=== PATIENT | male | born 1960 | race Caucasian/White ===

== ENCOUNTER → 2023-03-05 | Outpatient (CLI) | payer OTHER ==
[~2023-03-05] VITALS: Ht 180.3 cm; Wt 105.0 kg
[2023-03-05] VITALS (11 sets, daily range): BP systolic 133–159; BP diastolic 72–86; PULSE 67–74; TEMP 97.6
[~2023-03-05] MED LIST: ADVAIR IH; ALLEGRA30 MG PO; BYSTOLIC20 MG PO; COMBIRESP IH; COMBIVENT INH14.7 GM IH; COMBIVENT1 ARO IH; COZAAR100 MG PO; DIOVAN320 MG PO; FLOMAX 0.40.4 MG/CAP PO; FLONASE NASAL S16 GM NS; GLUCOPHAGE XR500 M1 PO; GLUCOTROL XL10 MG PO; HCTZ; HCTZ 25MG TAB25 MG PO; HCTZ12.5TAB PO; IPRATROPIUM BROM3 M1 IH; JANUMXR100-1000 PO; JANUMXR1000-50 PO; JARDIANCE25 PO; KLOR-CON SPRIN10 MEQ PO; LIPITOR 10MG10 MG PO; LORTAB 5/500 501 TAB PO; LYRICA200 MG PO; METHOTREXA2.5 MG/TAB PO; Midazolam 2 MG/2 ML VIAL IV SCH; NAPROSYN500 MG PO; NORVASC 10MG10 MG PO; NORVASC 5MG5 MG/TAB PO; NUCALA40 MG/0.4; PREDNISONE1 MG PO; PREDNISONE10 MG; PREDNISONE10 MG PO; PREVACID 30MG30 M1 PO; PROAIR HFA0.09 MG/AC IH; PROSCAR 5MG5 MG PO; PROVENTIL0.09 MG/A1 IH; RT ADVAIR 528 DISKUS IH; SINGULAIR 110 MG/TAB PO; TESSALON P100 MG/CAP PO; ULTRAM 50MG TAB50 MG PO; VENTOLIN INHAL6.8 GM IH; ZOCOR 10MG10 MG PO; fentaNYL 50 MCG/ML 2 ML VIAL IV SCH
[2023-03-05 09:42] LABS: HEMOGLOBIN 13.6 g/dl (13.5-18.0); MEAN CELL VOLUME 79 fl (80.0-100.0); MEAN CORPUSCULAR HEMOGLOBIN 26 pg (27-31); MEAN CORPUSCULAR HGB CONC 33 g/dl (33.0-37.0); MEAN PLATELET VOLUME 8.9 fl (7.4-10.4); PLATELET COUNT 149 K/mm3 (130-400); RED BLOOD COUNT 5.17 M/mm3 (4.20-5.60); REDCELL DISTRIBUTION WIDTH-CV 17.2 % (11.5-14.5)
[2023-03-05 10:08] LABS: ALBUMIN 3.5 gm/dL (3.4-4.8); BILIRUBIN,TOTAL 0.9 mg/dL (0.2-1.2); CREATININE, serum 0.79 mg/dL (0.72-1.25); POTASSIUM 3.5 mmol/L (3.5-4.5); TOTAL PROTEIN 7.5 gm/dL (6.2-8.1)
[2023-03-05 10:14] LABS: ANISOCYTOSIS 1+; BAND 1 % (0-10); HYPOCHROMIA 1+; LYMPHOCYTE 70 % (20.0-51.0); MICROCYTOSIS 1+; NEUTROPHILS 18 % (42.0-75.2); PLATELET ESTIMATE NORMAL (NORMAL)
== END ==
LOC: COL.RAD 07:47
PROVIDERS: Internal Medicine
DX: C91.Z0 Other lymphoid leukemia not having achieved remission (principal)
CPT/HCPCS: J2250; J3010